=== PATIENT | female | born 1970 | race Hispanic/Latino ===

== ENCOUNTER 2024-02-23 17:30 | Emergency (ER) | payer BC ==
[~2024-02-23] VITALS: Ht 167.6 cm; Wt 69.4 kg
[2024-02-23 17:41] VITALS: BP 152/81; PULSE 73; RESP 18
[2024-02-23] MEDS ORDERED: OMEP40CA21 PO (18:43)
[2024-02-23] MEDS ORDERED: IBUP-2077 PO (18:43)
[2024-02-23] MEDS ORDERED: METH4TAB3 PO (18:43)
[2024-02-23] MEDS ORDERED: CYCL-309 PO (18:43)
[2024-02-23] MEDS: DEXAMETHASONE SOD PHOSPHATE 4 MG/ML 1ML VIAL IM ONE (18:52)
[2024-02-23] MEDS: IBUPROFEN 800 MG TAB PO ONE (18:53)
[2024-02-23] MEDS: HYDROCODONE/ACETAMINOPHEN 5/325 MG TAB PO ONE (18:53)
[2024-02-23] MEDS: CYCLOBENZAPRINE HCL 10 MG TABLET PO ONE (18:53)
== END 2024-02-23 19:07 | disposition home or self-care (01) ==
LOC: EDH 17:30
DX: G89.29 Other chronic pain (principal); M54.50 Low back pain, unspecified; E03.9 Hypothyroidism, unspecified; Z98.890 Other specified postprocedural states
CPT/HCPCS: 99284; 96372; J1100